=== PATIENT | female | born 1945 | race Caucasian/White ===

== ENCOUNTER → 2020-12-03 15:50 | Outpatient (BNVA) | payer MEDICARE, SELFPAY | PROVIDERS: Visit Provider Obstetrics & Gynecology | DX: N85.8 Other specified noninflammatory disorders of uterus (principal) | CPT/HCPCS: 85025; 86304 ==

== ENCOUNTER → 2020-12-07 13:19 | Outpatient (BNVA) | payer MEDICARE, SELFPAY | PROVIDERS: Visit Provider Obstetrics & Gynecology | DX: R10.2 Pelvic and perineal pain (principal) | CPT/HCPCS: 76830 ==

== ENCOUNTER 2024-08-29 11:00 | Oncology outpatient (recurring) (ONCR) | payer MEDICARE, MEDICAID, SELFPAY ==
[2024-08-06 11:27] LABS: Basophils % 0.4 %; Eosinophils % 0.4 %; Hematocrit 36.9 % (36-47); Lymphocytes # 1.9 10^3/uL (0.8-4.8); Mean Corpuscular Hemoglobin 29.7 pg (27-33); Mean Corpuscular Volume 92.9 fl (85-98); Mean Platelet Volume 9.1 fL (7.4-10.4); Monocytes # 0.4 10^3/uL (0.2-0.9); Monocytes % 5.8 %; Neutrophils # 4.96 10^3/uL (1.8-7.7); Nucleated Red Blood Cells % 0 %; Platelet Count 280 10^3/cmm (157-399); Red Blood Count 3.97 10^6/uL (3.85-5.65); Red Cell Distribution Width 13.2 % (12.1-15.1); White Blood Count 7.41 10^3/uL (3.29-11.43)
[2024-08-06 11:31] LABS: Reticulocyte % 1.3 % (0.5-2.0)
[2024-08-06 12:07] LABS: Alanine Aminotransferase 9 U/L (0-33); Albumin Level 4.1 g/dL (3.5-5.2); Alkaline Phosphatase 73 U/L (35-105); Anion Gap 14.7 (5-19); Aspartate Amino Transferase 14 U/L (0-32); Blood Urea Nitrogen 20 mg/dL (8-23); Calcium 9.5 mg/dL (8.5-10.5); Carbon Dioxide 25 mmol/L (22-29); Chloride 102 mmol/L (98-107); Ferritin 311 ng/mL (15-150); Globulin 3.1 g/dL (1.3-4.6); Glucose 103 mg/dL (65-115); Iron 45 ug/dL (37-145); Osmolality Calculated 287 mOsm/kg (285-295); Percent Saturation 17.7 % (20-50); Potassium 4.7 mmol/L (3.5-5.1); Sodium 137 mmol/L (136-145); Total Bilirubin 0.5 mg/dL (0.15-1.2); Total Iron Binding Capacity 253 mcg/dl; Total Protein 7.2 g/dL (6.6-8.7); Unsaturated Iron Binding 208 ug/dL (112-347); Vitamin B12 234 pg/mL (232-1245)
[2024-08-06 12:09] LABS: Folate Level 15.9 ng/mL (4.8-37.3)
--- NOTE | 2024-08-29 11:00 | CTR_ITS ---
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 Radiation optimization: All CT scans at this facility use at least one of these dose optimization techniques: automated exposure control; mA and/or kV adjustment per patient size (includes targeted exams where dose is matched to clinical indication); or iterative reconstruction. Contrast material: OMNI 350; Contrast volume: 100 ml; Contrast route: INTRAVENOUS (IV); COMPARISON: No relevant prior studies available. RADIATION DOSE METRICS: Total DLP (mGy-cm): 774.82 FINDINGS: Lungs: Sessile subpleural nodule along the anterior aspect of the left upper lobe noted measuring 1.3 cm in size. Pleural spaces: Bilateral small volume pleural effusions slightly nodular contour along the pleural surface adjacent to the effusion. No pneumothorax. Heart: Unremarkable. No cardiomegaly. No pericardial effusion. Lymph nodes: Several metastatic mediastinal natan masses seen which are partially calcified. The largest located at the level of the aortic arch proximally 3.7 x 2.3 cm. Vasculature: Unremarkable. No aortic aneurysm. Bones/joints: No suspicious lytic or blastic osseous lesions. No acute fracture. Soft tissues: Unremarkable. 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 Radiation optimization: All CT scans at this facility use at least one of these dose optimization techniques: automated exposure control; mA and/or kV adjustment per patient size (includes targeted exams where dose is matched to clinical indication); or iterative reconstruction. Contrast material: OMNI 350; Contrast volume: 100 ml; Contrast route: INTRAVENOUS (IV); COMPARISON: US transvaginal [id number] 12/07/2020 1:12 PM RADIATION DOSE METRICS: Total DLP (mGy-cm): 774.82 FINDINGS: Liver: Normal. No mass. Gallbladder and biliary ducts: Cholecystectomy. No ductal dilation. Pancreas: Metastatic cystic/solid partially calcified mass in the pancreatic tail measuring 3.5 x 4.7 cm. No ductal dilation. Spleen: Normal. No splenomegaly. Adrenal glands: Normal. No mass. Kidneys and ureters: Moderate right-sided hydronephrosis which appears obstructed from the left adnexal mass. There is severe hydroureter near the site of obstruction. A few scattered probable subcentimeter cysts noted in both kidneys. Stomach and bowel: No obstruction. There are several metastatic masses abutting portions of the bowel including the right hemicolon, transverse colon near the splenic flexure, and rectum to name a few. Appendix: No evidence of appendicitis. Intraperitoneal space: Several omental masses noted, the largest mass is seen abutting the right hemicolon and inferior to the right hepatic lobe measuring 5.3 x 2.4 cm which is partially calcified. There is also omental caking in the left upper abdomen. Small volume upper abdominal ascites. Vasculature: Unremarkable. No abdominal aortic aneurysm. Lymph nodes: Enlarged metastatic nodes noted in the right lower abdomen measuring up to 1.3 cm in short axis. Urinary bladder: Unremarkable as visualized. Reproductive: Partially cystic/solid mass in the left adnexal region measuring 6.2 x 3.8 cm which abuts and displaces the rectum. There is also a partially calcified mass in the right ovary which is difficult to definitively measure. Hysterectomy. Bones/joints: No acute fracture. No suspicious lytic or blastic osseous lesions. Soft tissues: A couple partially calcified masses in the soft tissues of the abdomen including right rectus sheath measuring 3.1 x 2.0 cm and in a periumbilical hernia measuring 2.[address]/CT chest abdpel w/*[id number] IMPRESSION: 1. Metastatic mediastinal adenopathy. 2. 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 Given presence of a small volume right pleural effusion this is also likely involved. IMPRESSION: 1. Metastatic disease with large mass in the left ovary measuring 6.2 x 3.8 cm. This mass is obstructing the distal left ureter with severe hydroureter at the site of obstruction and moderate hydronephrosis upstream. 2. Several sites of metastatic omental implants with small volume ascites in the upper abdomen. 3. Metastatic soft tissue deposits in the right rectus sheath and periumbilical hernia. 4. Metastatic adenopathy noted in the right lower abdomen. 5. Metastatic mass in the pancreatic tail.
[2024-08-29] MEDS: iohexol 350 mg/mL 500 mL Btl (per mL) IV (11:11)
[2024-08-29] MEDS: iohexol 350 mg/mL 500 mL Btl (per mL) PO (11:12)
== END 2024-09-01 23:59 | disposition home or self-care (01) ==
LOC: RAD 08-30 00:01 → ONCMED 09-01 09:16
PROVIDERS: PCP Family Medicine; Visit Provider Internal Medicine
DX: Z53.9 Procedure and treatment not carried out, unspecified reason; C56.1 Malignant neoplasm of right ovary; C79.62 Secondary malignant neoplasm of left ovary; C78.89 Secondary malignant neoplasm of other digestive organs; C79.89 Secondary malignant neoplasm of other specified sites
CPT/HCPCS: 36415; 71260; 74177; 80053; 82607; 82728; 82746; 83010; 83540; 83550; 85025; 85045; 86304; 99204

== ENCOUNTER 2024-09-24 09:22 | Oncology outpatient (recurring) (ONCR) | payer OTHER, SELFPAY ==
[2024-09-24 10:53] LABS: Basophils % 0.5 %; Eosinophils # 0.1 10^3/uL (0.0-0.8); Eosinophils % 0.9 %; Hematocrit 37.3 % (36-47); Lymphocytes # 1.8 10^3/uL (0.8-4.8); Lymphocytes % 23.5 %; Mean Corpuscular HGB Conc 32.7 g/dL (30-55); Mean Corpuscular Hemoglobin 30.5 pg (27-33); Mean Corpuscular Volume 93.3 fl (85-98); Mean Platelet Volume 9.4 fL (7.4-10.4); Monocytes # 0.5 10^3/uL (0.2-0.9); Monocytes % 6.6 %; Neutrophils # 5.21 10^3/uL (1.8-7.7); Nucleated Red Blood Cells % 0 %; Platelet Count 312 10^3/cmm (157-399); Red Cell Distribution Width 13.6 % (12.1-15.1); White Blood Count 7.67 10^3/uL (3.29-11.43)
[2024-09-24 11:11] LABS: Alanine Aminotransferase 15 U/L (0-33); Albumin Level 3.8 g/dL (3.5-5.2); Alkaline Phosphatase 104 U/L (35-105); Anion Gap 18.8 (5-19); Aspartate Amino Transferase 19 U/L (0-32); Blood Urea Nitrogen 18 mg/dL (8-23); Carbon Dioxide 23 mmol/L (22-29); Chloride 100 mmol/L (98-107); Creatinine Clr Calc Pharmacy 49.1645; Ferritin 425 ng/mL (15-150); Globulin 3.3 g/dL (1.3-4.6); Glucose 102 mg/dL (65-115); Iron 36 ug/dL (37-145); Osmolality Calculated 288 mOsm/kg (285-295); Percent Saturation 15.4 % (20-50); Potassium 3.8 mmol/L (3.5-5.1); Sodium 138 mmol/L (136-145); Total Bilirubin 0.4 mg/dL (0.15-1.2); Total Iron Binding Capacity 233 mcg/dl; Total Protein 7.1 g/dL (6.6-8.7); Unsaturated Iron Binding 197 ug/dL (112-347)
[2024-09-24 11:27] LABS: Vitamin B12 258 pg/mL (232-1245)
[2024-09-24 11:31] LABS: Folate Level 11.4 ng/mL (4.8-37.3)
[2024-09-28 05:10] LABS: Methylmalonic Acid 185 nmol/L (69-390)
== END 2024-10-01 23:59 | disposition home or self-care (01) ==
PROVIDERS: PCP Family Medicine; Visit Provider Internal Medicine
DX: C56.1 Malignant neoplasm of right ovary (principal); C78.6 Secondary malignant neoplasm of retroperitoneum and peritoneum; R03.0 Elevated blood-pressure reading, without diagnosis of hypertension; R49.0 Dysphonia; D50.9 Iron deficiency anemia, unspecified; Z79.899 Other long term (current) drug therapy; R14.0 Abdominal distension (gaseous)
CPT/HCPCS: 36415; 80053; 82607; 82728; 82746; 83540; 83550; 83921; 85025; 99213